=== PATIENT | male | born 1960 | race Caucasian/White ===

== ENCOUNTER 2017-03-03 11:31 | Emergency (ER) | payer OTHER ==
[2017-03-03 13:08] LABS: APPEARANCE HAZY (CLEAR); BACTERIA FEW /hpf (NONE SEEN); BILIRUBIN NEGATIVE (NEGATIVE); COLOR YELLOW (YELLOW); EPITHELIAL CELLS 0-5 /hpf (0-5); GLUCOSE NEGATIVE (NEGATIVE); KETONE NEGATIVE (NEGATIVE); MUCUS <1+ /lpf (NONE SEEN); NITRITE NEGATIVE (NEGATIVE); PROTEIN NEGATIVE (NEGATIVE); RED CELLS - URINE 25-50 /hpf (0-5); UROBILINOGEN NORMAL (NORMAL); WHITE CELLS - URINE 0-5 /hpf (0-5)
[2017-03-04] MEDS ORDERED: CARDIZEM CD240 MG PO (14:37)
[2017-03-04] MEDS ORDERED: K-TAB10 MEQ PO (14:38)
[2017-03-04] MEDS ORDERED: NIASPAN500 MG PO (14:38)
[2017-03-04] MEDS ORDERED: HYZAAR 100-12.51 TAB PO (14:38)
[2017-03-04] MEDS ORDERED: FUROSEMIDE20 MG PO (14:38)
[2017-03-04] MEDS ORDERED: LIPITOR40 MG PO (14:38)
[2017-03-04] MEDS ORDERED: FISH OIL 1,0001 CA1 PO (14:38)
[2017-03-04] MEDS ORDERED: COLACE100 MG PO (14:39)
[2017-03-04] MEDS ORDERED: FLOMAX0.4 MG PO (16:00)
[2017-03-04] MEDS ORDERED: TORADOL10 MG PO (16:00)
[2017-03-04] MEDS ORDERED: NORCO 7.5/325 T1 TA1 PO (16:01)
[2017-03-27 09:48] VITALS: BMI 51.5
== END 2017-03-03 15:02 | disposition home or self-care (01) ==
LOC: D.ER 11:31
PROVIDERS: Emergency Medicine
DX: R10.9 Unspecified abdominal pain (principal); R11.0 Nausea; I10 Essential (primary) hypertension; E03.9 Hypothyroidism, unspecified

== ENCOUNTER 2017-03-06 05:46 | Day surgery (SDC) | payer OTHER ==
[2017-03-04 15:31] LABS: ANION GAP 14.4 mmol/L (8-16); CALCIUM 9.4 mg/dL (8.5-10.1); CARBON DIOXIDE 26.1 mmol/L (21.0-32.0); CREATININE - SERUM 1.1 mg/dL (0.6-1.3); POTASSIUM - SERUM 4.5 mmol/L (3.5-5.1)
[2017-03-04 15:39] LABS: HEMATOCRIT 53.9 % (42.0-54.0); HEMOGLOBIN 17.3 g/dL (13.5-17.5); MCH 30.9 pg (26.0-34.0); MCHC 32.1 g/dL (31.0-37.0); MCV 96.3 fL (80.0-100.0); MEAN PLATELET VOLUME 13.3 fL (7.4-10.4); RBC 5.6 10x6/uL (4.20-6.10); RDW 13.1 % (11.5-14.5); WBC 11.2 10x3/uL (4.8-10.8)
[~2017-03-06] VITALS: Ht 185.4 cm; Wt 176.9 kg
--- NOTE | ~2017-03-06 | OP ---
PATIENT NAME: GERDA SINHA MEDICAL RECORD: [id number] :62 LOCATION:D[facility] ADMISSION DATE: SURGEON: ADELSO KERN MD DATE OF OPERATION: 03/06/2017 SURGEON: Adelso Kern MD ANESTHESIA: General anesthesia by Andrew Rosenberg CRNA. PREOPERATIVE DIAGNOSIS: Left proximal ureteral 7-mm stone, right renal 8-mm stone. PROCEDURES: Cystoscopy, left retrograde pyelogram, left ureteroscopy and nephroscopy, bilateral ureteral stent insertion 6-Turkmen x 26 cm with string attached. FINDINGS: Radiodense right renal 8-mm stone. Radiolucent left renal stone, perhaps 4 mm in size. Bilateral medial deviation of the mid ureters. Very obstructive prostate with trilobar hyperplasia causing problems with deflection of the scopes by the median lobe. Single ureteral orifices bilaterally. No bladder tumors. SPECIMENS: None. ESTIMATED BLOOD LOSS: Minimal. CLINICAL HISTORY: This is a 56-year-old male with a previous history of kidney stones since age 12. They have been of calcium composition. He started complaining of left flank pain radiating into the left lower quadrant and into the left testicle about 2 days prior to my visit in the office, 03/04/2017 was the office visit date. A CT scan shows a right 8-mm renal pelvis stone and a 7-mm stone obstructing the left proximal ureter. There are also multiple stones in the left upper pole of the kidney. He comes today for left ureteroscopy and extraction of the stone. Also, because of his large stone on the opposite side, he will have bilateral ureteral stents inserted. He is not allergic to any medications. He was given ampicillin and sulbactam 3 grams IV air conditioning sheet metal installer to the OR. DESCRIPTION OF PROCEDURE: The patient was given induction of general anesthesia. He was then placed in the dorsal lithotomy position and prepped and draped. We used a 21-Turkmen cystoscope with 30-degree lens. Penile urethra was normal with no strictures or obstruction. Going into the prostatic urethra, he has trilobar hyperplasia. The bladder neck is especially tall due to a very large median lobe and this deflected the scope quite anteriorly. It was actually very difficult to even get into the bladder with the regular cystoscope. We were able to get into the bladder and the scope could barely reach inside the bladder. From what I could see, no bladder tumors were seen. Single ureteral orifices were seen. The left ureteral orifice was intubated with an open-ended ureteral catheter. On fluoroscopy, I could see what was possibly a radiodense stone on the right side in the right kidney, but I could not see any stones on the left side. Using diluted contrast, a left retrograde pyelogram was performed. This showed a medially deviated ureter on the left mid ureter and went up into a mildly hydronephrotic left kidney. No obvious filling defect was seen. We then inserted a Sensor wire up into the left renal pelvis. The open-ended ureteral catheter was then removed entirely, leaving the Sensor OPERATIVE REPORT [id number] TROY [place]IN[place]ANE wire in place. Over the Sensor wire, we inserted the UroMax ureteral dilation balloon. This was an 18-Turkmen x 4 cm long balloon. This was used to inflate the left ureteral orifice to 16 atmospheres of pressure for a few seconds and then the balloon was completely deflated and removed entirely. The wire was left in place. Rigid ureteroscopy was performed. Going up to the limit of the extent of the rigid ureteroscope which was to the proximal ureter, I could not see a stone at all. Therefore, I decided to proceed with flexible ureteroscopy. Over the wire, we inserted a 12/14 ureteral access sheath. Once the sheath was in correct position, the trocar was withdrawn, leaving the sheath in place. The scope would not fit with the wire in place, so the wire had to be withdrawn also. The sheath, reached up to the proximal ureter, but not into the kidney. Going up to the flexible ureteroscope, I look at the level of the proximal ureter and saw no stones. Going into the kidney, there were some small Eder's plaques on the kidney calices. However, no significant stone was seen except for 1 small 3-4 mm stone in one of the mid pole calices. In attempting to put a basket and to retrieve the stone, the water flow through the solitary channel of the flexible scope was eliminated and visualization was very difficult due to some hematuria. After a couple of attempts to get out the stone, I abandoned further attempts to do this. The flexible ureteroscope was then removed. The wire was placed back into the kidney. The ureteral access sheath was then removed entirely. The wire was backloaded on to the cystoscope and over the wire, a 6-Turkmen x 26 cm ureteral stent was placed. The string on the distal end of the stent was maintained. The stent was pushed into the bladder using a pusher. The wire was entirely withdrawn once the proximal end of the stent was in the renal pelvis and it was seen to coil. We then inserted the wire into the right ureteral orifice. This verified that the radiodensity seen there was indeed the right renal stone, 8 mm in size. Another stent was inserted on the right side, again 6-Turkmen x 26 cm. Once the fluoroscopy confirmed that the stents were in correct position, the wire was entirely withdrawn. The distal end of stent was pushed into the bladder using a pusher. The bladder was then emptied through the cystoscope sheath and then the scope was entirely removed. The 2 strings from the 2 stents were tied to each other and then cut shorter. We will make arrangements for right-sided ESWL next week. TRANSINT:[id number] Voice Confirmation ID: [id number] DOCUMENT ID: [id number] ADELSO KERN MD at 2125 CC: [id number] DICTATION DATE: 03/06/17 0939 POULTRY HUSBANDMAN: 03/06/17 1419 [facility] 03/06/17 [facility] [address] [place] [address]
[~2017-03-06 05:46] MED LIST: CARDIZEM CD240 MG PO; COLACE100 MG PO; FISH OIL 1,0001 CA1 PO; FLOMAX0.4 MG PO; FUROSEMIDE20 MG PO; HYZAAR 100-12.51 TAB PO; K-TAB10 MEQ PO; LIPITOR40 MG PO; NIASPAN500 MG PO; NORCO 7.5/325 T1 TA1 PO; TORADOL10 MG PO
[2017-03-06 06:26] VITALS: BP 145/80; Ht 185.4 cm; Wt 176.9 kg
== END 2017-03-06 11:55 | disposition home or self-care (01) ==
LOC: D.OPS 05:46 → D.PAN 07:30 → D.OPS 07:30
PROVIDERS: Anesthesiology
DX: N20.1 Calculus of ureter (principal); N20.0 Calculus of kidney; N40.0 Benign prostatic hyperplasia without lower urinary tract symptoms; Z87.442 Personal history of urinary calculi; Z01.812 Encounter for preprocedural laboratory examination

== ENCOUNTER 2017-03-14 10:48 | Day surgery (SDC) | payer OTHER ==
[~2017-03-14] VITALS: Ht 185.4 cm; Wt 163.6 kg
--- NOTE | ~2017-03-14 | OP ---
PATIENT NAME: GERDA SINHA MEDICAL RECORD: [id number] :62 LOCATION:[facility] ADMISSION DATE: SURGEON: ADELSO KERN MD DATE OF OPERATION: 03/14/2017 SURGEON: Adelso Kern MD ANESTHESIA: MAC by Janelle Charles CRNA PREOPERATIVE DIAGNOSIS: Right renal stone, 8 mm. POSTOPERATIVE DIAGNOSIS: Right renal stone, 8 mm. PROCEDURE: Right ESWL times 3000 shocks. CLINICAL HISTORY: This is a 56-year-old male with bilateral renal stones. He initially had a left 7-mm stone as well as a right 8-mm stone. He had left ureteroscopy and stone extraction a week ago. He comes now to have the right 8-mm stone treated. Since he has bilateral stents, he was given antibiotics on-call to the OR. PROCEDURE: The patient was given IV sedation. He was placed on the treatment table. Fluoroscopy was performed and we could easily see the right renal radiodense stone. Fluoroscopy on the left side also showed a 4-mm stone adjacent to the stent. We targeted the right-sided stone in 2 planes and gave 3000 shocks. It was seen to have broken up at the end of the treatment. The patient would like to have the left side treated next week, which we will arrange for. TRANSINT:[id number] Voice Confirmation ID: [id number] DOCUMENT ID: [id number] ADELSO KERN MD at 1328 CC: [id number] DICTATION DATE: 03/14/17 1351 PRINCIPAL SCIENTIST: 03/14/17 1510 [facility] 03/14/17 [place] [id number] [place] [id number]
[2017-03-14 12:11] VITALS: BP 149/77; Ht 185.4 cm; Wt 163.6 kg
== END 2017-03-14 14:10 | disposition home or self-care (01) ==
LOC: D.OPS 10:48
DX: N20.0 Calculus of kidney (principal); Z01.812 Encounter for preprocedural laboratory examination

== ENCOUNTER 2017-03-21 08:57 | Day surgery (SDC) | payer OTHER ==
[~2017-03-21] VITALS: Ht 185.4 cm; Wt 177.3 kg
--- NOTE | ~2017-03-21 | OP ---
PATIENT NAME: GERDA SINHA MEDICAL RECORD: [id number] :62 LOCATION:D[facility] ADMISSION DATE: SURGEON: LOY KERN MD DATE OF OPERATION: 03/21/2017 SURGEON: Loy Kern MD ANESTHESIA: MAC by Janelle Charles CRNA. PREOPERATIVE DIAGNOSIS: Left renal stone, 4 mm. POSTOPERATIVE DIAGNOSIS: Left renal stone, 4 mm. PROCEDURE: Left ESWL times 3000 shocks. FINDINGS: Radiodense left renal stone 4 mm. Small residual stones in the right lower pole. ESTIMATED BLOOD LOSS: None. CLINICAL HISTORY: This is a 56-year-old male, who initially presented with bilateral renal stones. He had a left ureteral stone as well as a left renal stone and a large right renal stone. He has had the left ureteral stone removed by ureteroscopy. He then had a right ESWL. He now comes to have the remaining left renal stone treated with ESWL today. Because he has bilateral ureteral stents, we gave him gentamicin IV for prophylaxis. DESCRIPTION OF PROCEDURE: The patient was placed on the treatment table. The stone was targeted in 2 planes. 3000 shocks were given to the stone and it was seen to break up. The patient is tired of having the ureteral stent and he insists that he wants to have them removed. We will make arrangements to have the stents removed by cystoscopy next week. TRANSINT:[id number] Voice Confirmation ID: [id number] DOCUMENT ID: [id number] LOY KERN MD at 1251 CC: [id number] DICTATION DATE: 03/21/17 1413 CERTIFIED MORTICIAN: 03/21/17 1501 [facility] 03/21/17 [place] [id number]
[2017-03-21 10:20] VITALS: BP 133/7; Ht 185.4 cm; Wt 177.3 kg
== END 2017-03-21 15:15 | disposition home or self-care (01) ==
LOC: D.OPS 08:57
DX: N20.0 Calculus of kidney (principal); Z01.812 Encounter for preprocedural laboratory examination; Z98.890 Other specified postprocedural states

== ENCOUNTER 2017-03-27 08:47 | Day surgery (SDC) | payer OTHER ==
[~2017-03-27] VITALS: Ht 185.4 cm; Wt 176.9 kg
--- NOTE | ~2017-03-27 | OP ---
PATIENT NAME: GERDA SINHA MEDICAL RECORD: [id number] :62 LOCATION:D.[facility] ADMISSION DATE: SURGEON: LOY KERN MD DATE OF OPERATION: 03/27/2017 DATE OF SURGERY: 03/27/2017 SURGEON: Loy Kern MD ANESTHESIA: General anesthesia by Dr. Loy Love. PREOPERATIVE DIAGNOSIS: Retained ureteral stents bilaterally. PROCEDURE: Cystoscopy and bilateral ureteral stent removal. FINDINGS: Strings from the ureteral stents were in the penile urethra. SPECIMENS: Bilateral ureteral stents. ESTIMATED BLOOD LOSS: None. CLINICAL HISTORY: This is a 56-year-old male who presented with bilateral renal stones. He had bilateral ureteral stents placed. The strings on the distal end of the stents were maintained and they were tied to each other. The strings hang out of the penile urethra. In the meantime, he has had procedures done to treat his stones and the last procedure was left ESWL. He wants to have the stents removed. He has passed his stones. He finds the stents very annoying. He was given IV antibiotics instructional media services technician to the OR. The strings were initially visible, but now they are no longer visible and therefore, we will have to remove them by cystoscopy. DESCRIPTION OF PROCEDURE: The patient was given general anesthetic as he is morbidly obese and there is a risk of reflux and aspiration. Once he was asleep, he was placed in the dorsal lithotomy position and prepped and draped. A 21-Malawian cystoscope with 30-degree lens was used for visualization. The strings were found in the penile urethra near the urethral meatus. Grasping forceps were used to remove both strings simultaneously. Both stents were entirely removed. The patient will be seen on a p.r.n. basis. TRANSINT:[id number] Voice Confirmation ID: [id number] DOCUMENT ID: [id number] LOY KERN MD at 1538 CC: [id number] DICTATION DATE: 03/27/17 1314 SHAREPOINT DESIGNER DEVELOPER: 03/27/17 1344 [facility] 03/27/17 [place] [address]
[2017-03-27 09:48] VITALS: BP 149/80; Ht 185.4 cm; Wt 176.9 kg
[2017-03-27 11:09] LABS: HEMATOCRIT 47.3 % (42.0-54.0); HEMOGLOBIN 15.9 g/dL (13.5-17.5); MCH 30.3 pg (26.0-34.0); MCHC 33.6 g/dL (31.0-37.0); MCV 90.3 fL (80.0-100.0); MEAN PLATELET VOLUME 13.2 fL (7.4-10.4); RBC 5.24 10x6/uL (4.20-6.10); RDW 12.4 % (11.5-14.5); WBC 7.7 10x3/uL (4.8-10.8)
[2017-03-27 11:28] LABS: CALCIUM 8.7 mg/dL (8.5-10.1); CARBON DIOXIDE 27.1 mmol/L (21.0-32.0); CHLORIDE - SERUM 104 mmol/L (98-107); CREATININE - SERUM 0.6 mg/dL (0.6-1.3); SODIUM 137 mmol/L (136-145); UREA NITROGEN 11 mg/dL (7-18); eGFR NON AFRICAN AMERICAN > 90 mL/min (90-120)
[2017-03-27 11:31] LABS: CALC OSMOLALITY 272 mosm/kg (275-300); GLUCOSE 97 mg/dL (74-106); POTASSIUM - SERUM 4.2 mmol/L (3.5-5.1)
== END 2017-03-27 14:45 | disposition home or self-care (01) ==
LOC: D.OPS 08:47 → D.PAN 11:00 → D.OPS 11:00
PROVIDERS: Anesthesiology
DX: N20.2 Calculus of kidney with calculus of ureter (principal); I25.10 Atherosclerotic heart disease of native coronary artery without angina pectoris; K21.9 Gastro-esophageal reflux disease without esophagitis; E66.9 Obesity, unspecified; Z96.0 Presence of urogenital implants